=== PATIENT | female | born 1985 | race Caucasian/White ===

== ENCOUNTER 2020-07-24 15:57 | Inpatient (IN) ==
[2020-07-24] MEDS ORDERED: OXYTOCIN 30 UNITS/500 ML BAG IV PRN ×2 (18:15)
--- NOTE | 2020-07-24 18:38 | History & Physical Report ---
Date of Service July 24, 2020 Assessment & Plan Admission and Anticipated Discharge Date Admission Date: July 24, 2020 IUP at 37+ weeks with chronic hypertension on labetalol and superimposed hypertension. will AROM after PIH labs done may need pitocin augmentation anticipate vaginal History of Present Illness Primary Care Provider: Alexis Polk Patient is a 35 yo white female EDC 08/12/20 who presents at 37 2/7 weeks with history of chronic HTN on labetalol was seen in the office for BP check & NST , BP markedly elevated at visit and she is sent to L&D for further evaluation. No PIH or COVID symptoms. BP continues to meet gestational HTN criteria and so she will be admitted for IOL. GBS negative blood type- B positive. growth scans have been appropriate. prior history remarkable for a prior IUFD at 38 weeks ( cord accident). Allergies Allergy/AdvReac Type Severity Reaction Status Date / Time No Known Allergies Allergy Verified 07/24/20 16:43 Home Medications Home Medications Medication Instructions Recorded Confirmed Type labetalol 100 mg tablet 100 mg PO BID 12/28/19 07/24/20 History prenat.vits,eugene,[id number] 1 tab PO DAILY 12/28/19 07/24/20 History sertraline 100 mg tablet 100 mg PO DAILY 12/28/19 07/24/20 History aspirin 81 mg tablet,delayed 81 mg PO DAILY 03/01/20 07/24/20 History release Patient History Medical History Anxiety and depression History of chicken pox Hypertension Surgical History S/P dilatation and curettage Family History Father Hypertension Social History Smoking Status: Former smoker Hx Alcohol Use: No Hx Substance Use: No Preferred Language: Gambian Communication Ability: Effective Beliefs That Will Affect Care: None marital status: marital status details: Oliverio Sandoval (41) [phone] Current Living Situation: Family Current Living Situation Comment: 2 daughter and spouse current occupational status: employed 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[employer] Other Information That Helps Us Care for You: No Feels Safe at Home: Yes Safety Concerns: Feels Safe At This Time Review of Systems All systems reviewed & are unremarkable except as noted in HPI & below Physical Exam Constitutional: WD/WN, vitals as above Respiratory: normal respiratory effort, lungs clear to auscultation Cardiovascular: RRR, no murmur, no edema Gastrointestinal (Abdomen): normal bowel sounds, soft, nontender, no hepatosplenomegaly Psychiatric: A+Ox3, euthymic affect Genitourinary: OB Exam Abdomen: + vertex, + estimated weight (7-8 pounds) and + regular contractions (4 minutes- mild) Manual OB Exam: + cervical dilation 4 cm, + cervical effacement 70% and + station -2 OB Exam Monitor Tracing: + external FHT monitor used, + external uterine monitor used, + category I and + normal FHT variability Results & Data ([place]) Vital Signs (Past 12 Hours) Vital Signs Temp Pulse Resp BP 07/24/20 18:05 91 H 161/96 H 07/24/20 17:50 93 H 157/95 H 07/24/20 17:35 98 H 148/86 H 07/24/20 17:20 93 H 157/90 H 07/24/20 17:06 80 156/92 H 07/24/20 16:51 92 H 160/99 H 07/24/20 16:35 86 155/102 H 07/24/20 16:22 99.0 F 20 07/24/20 16:19 109 H 151/103 H 07/24/20 16:14 110 H 144/101 H Coding Level of Care Code None
[2020-07-24 18:44] LABS: Hematocrit (blood only) 33.4 % (37-47); Hemoglobin 11.6 g/dL (12.0-16.0); Mean Corpuscular Hemoglobin 31.4 pg (25-34); Mean Corpuscular Volume 90.5 fL (80-100); Mean Platelet Volume 10.3 fL (7.4-10.4); Platelet Count 232 K/uL (130-400); RDW Coefficient of Variation 13.9 % (11.5-14.5); RDW Standard Deviation 45.5 fL (36.4-46.3); Red Blood Count 3.69 M/uL (4.2-5.4); White Blood Count 6.15 K/uL (4.8-10.8)
[2020-07-24 18:46] LABS: Mean Corpuscular Hgb Conc 34.7 g/dL (32-36)
[2020-07-24 18:57] LABS: Partial Thromboplastin Ratio 0.9; Partial Thromboplastin Time 24.9 Seconds (21.0-31.0); Prothrombin Time 10.3 Seconds (9.0-12.0)
[2020-07-24 19:02] LABS: Creatinine Clr Calc Pharmacy 156.1 ml/min; Est GFR (African American) 137.6; Est GFR (Non-African American) 118.7
[2020-07-24] MEDS: LABETALOL HCL 100 MG TAB PO SCH (21:05)
[2020-07-24] MEDS: LACTATED RINGER'S 1,000 ML IV PRN (21:13)
[2020-07-24 21:31] LABS: Protein Creatinine Ratio Urine 0.9 (0-0.2); Total Protein Urine Random 96.6 mg/dl (0-11.9)
[2020-07-24] MEDS ORDERED: ePHEDrine sulfate 50 MG/ML AMP ONE (22:38)
[2020-07-24] MEDS ORDERED: fentaNYL citrate 100 MCG/2 ML VIAL ONE (22:38)
[2020-07-24] MEDS ORDERED: BUPIVACAINE 0.25% 30 ML VIAL ONE (22:38)
[2020-07-24] MEDS ORDERED: fentaNYL 2MCG/ML ROPIV 1.25MG/ML 100 ML BAG EPI ONE (22:39)
--- NOTE | 2020-07-24 23:14 | Anesthesiology Consultation ---
Date of Service July 24, 2020 Assessment & Plan ASA ASA3 Proposed Anesthesia Anesthesia Type: Labor Epidural Risk / Benefits Reviewed With: PT / POA / Parent / Guardian, Accepts Plan and Informed Consent Obtained History Height/Weight Height: 5 ft 5 in Weight: 100.244 kg Allergies Allergy/AdvReac Type Severity Reaction Status Date / Time No Known Allergies Allergy Verified 07/24/20 16:43 Medications Home Medications Medication Instructions Recorded Confirmed Last Taken labetalol 100 mg tablet 100 mg PO BID 12/28/19 07/24/20 07/24/20 07:00 prenat.vits,eugene,[id number]-yghom 1 tab PO DAILY 12/28/19 07/24/20 07/23/20 20:00 sertraline 100 mg tablet 100 mg PO DAILY 12/28/19 07/24/20 07/24/20 07:00 aspirin 81 mg tablet,delayed 81 mg PO DAILY 03/01/20 07/24/20 07/23/20 07:00 release Active Medications Generic Name Dose Route Start Last Admin Trade Name Armida PRN Reason Stop Dose Admin Lactated Ringer's 1,000 mls @ 125 mls/hr 07/24/20 18:15 07/24/20 22:59 Lr IV 07/26/20 18:14 125 mls/hr .Q8H PRN Infusion L&D Protocol Protocol Oxytocin 30 units in 500 mls @ 3 mls/hr 07/24/20 18:15 07/24/20 22:00 Pitocin IV 07/26/20 18:14 0.18 units/hr .Q24H PRN 3 mls/hr Labor Induction/Augmentation Titration Protocol 0.18 UNITS/HR Labetalol HCl 100 mg 07/24/20 21:00 07/24/20 21:05 Labetalol Hcl 100 Mg Tab PO 08/23/20 20:59 100 mg BID KEY Administration Past Medical History Medical History Anxiety and depression History of chicken pox Hypertension Exercise / Class Metabolic Activity II 4-5 Yardwork/Stairs/Walk up hill Past Family History Family History Father Hypertension Past Surgical History Surgical History (Reviewed 07/24/20 @ 23:35 by BALWINDER Live S/P dilatation and curettage Past Anesthesia History No Hx of Anesthesia Complications and No Family Hx of Anesthesia Complications History of PONV No Hx of PONV and No Hx of Motion Sickness Social History Smoking Status: Former smoker Hx Alcohol Use: No Hx Substance Use: No Review of Systems denies fever/cough/ colds/ chest pain/ SOB/ DAJUAN Constitutional: no fever and no chills Respiratory: no cough and no dyspnea denies DAJUAN Cardiovascular: no chest pain and no dyspnea on exertion Physical Exam Vital Signs Last Vital Signs Temp 36.9 C 07/24/20 22:45 Pulse 76 07/24/20 23:34 Resp 18 07/24/20 22:45 BP 128/81 07/24/20 23:34 Pulse Ox 93 07/24/20 23:30 ENMT Mouth: no TMJ abnormality and no dentition abnormality Thyromental Distance: > or= 3.5 Finger Breadths Mallampati Class: II Neck neck extension not limited Respiratory normal respiratory effort; no respiratory distress Auscultation: lungs clear to auscultation bilaterally Cardiovascular Rate/Rhythm: regular rate and regular rhythm Neurologic moves all extremities Psychiatric Orientation: alert and oriented x 3 Testing Laboratory Results 07/24/20 18:34 07/24/20 18:34 PT 10.3 Seconds (9.0-12.0) 07/24/20 18:34 INR 1.0 (0.9-1.1) 07/24/20 18:34 APTT 24.9 Seconds (21.0-31.0) 07/24/20 18:34
[2020-07-24] MEDS ORDERED: NALOXONE HCL 0.4 MG/1 ML VIAL/CARP IV PRN (23:36)
[2020-07-24] MEDS ORDERED: ePHEDrine sulfate 50 MG/ML AMP IV PRN (23:36)
[2020-07-24] MEDS ORDERED: ONDANSETRON INJ 2 MG/ML 2 ML VIAL IV PRN (23:36)
[2020-07-24] MEDS ORDERED: fentaNYL 2MCG/ML ROPIV 1.25MG/ML 100 ML BAG EPI PRN (23:36)
[2020-07-24] MEDS ORDERED: PROMETHAZINE HCL 25 MG in SODIUM CHLORIDE 0.9% 50 ML IV PRN (23:36)
[2020-07-24] MEDS ORDERED: DiphenhydrAMINE HCL 50 MG/ML VIAL IV PRN (23:36)
[2020-07-24] MEDS ORDERED: NALOXONE HCL 1 MG in SODIUM CHLORIDE 0.9% 1000ML 1,000 ML IV PRN (23:36)
[2020-07-25] MEDS: LACTATED RINGER'S 1,000 ML IV PRN (01:09)
[2020-07-25] MEDS ORDERED: HYDROCORTISONE ACETATE 25 MG SUPP PR PRN (03:09)
[2020-07-25] MEDS ORDERED: OXYTOCIN 30 UNITS/500 ML BAG IV PRN (03:09)
[2020-07-25] MEDS ORDERED: SUPERCREAM 0.870% 15 GM JAR EXT PRN (03:09)
[2020-07-25] MEDS ORDERED: DIPHTHERIA/TETANUS/PERTUSSIS 0.5 ML SYR/VIAL IM ONE (03:09)
[2020-07-25] MEDS ORDERED: BENZOCAINE 20% AER SPR 82.5 GM CAN EXT PRN (03:09)
[2020-07-25] MEDS ORDERED: bisacodyL 10 MG SUPP PR PRN (03:09)
[2020-07-25] MEDS ORDERED: OXYCODONE/ACETAMINOPHEN 5mg/325mg TAB PO PRN (03:09)
[2020-07-25] MEDS ORDERED: ACETAMINOPHEN 325 MG TAB PO PRN (03:09)
--- NOTE | 2020-07-25 06:15 | Delivery Summary ---
DATE OF OPERATION: 07/25/2020 The patient is a 35-year-old 5, para 3-0-1-2 white female who had presented for her normal postop visit at the office on 07/24/2020 when she was noted to have elevated blood pressures. She does have a history of chronic hypertension, but has been well controlled on labetalol. She was sent to labor and delivery for further evaluation. During her time in labor and delivery, she fit the criteria for gestational hypertension superimposed on chronic hypertension and she was admitted for induction of labor. She was 3-4 cm on initial exam and she was having mild contractions. Membranes were ruptured for clear fluid. She received effective epidural analgesia. There were moderate variables at one point during the labor and her Pitocin augmentation had been stopped at that time. Ultimately, she progressed to full dilation and pushed through 1 contraction for delivery of a viable male . There was a loose nuchal cord present which was reduced after delivery of the head. The rest of the delivered easily and placed on the mother's abdomen for further attention and drying. The infant was moving all 4 limbs and had spontaneous crying. The cord was clamped and cut after 1 minute. Placenta was expressed intact with a 3-vessel cord. The perineum was examined and was intact. Estimated blood loss was 250 mL. Mother and infant were doing well after delivery. I attest to the content of the Intraoperative Record and any orders documented therein. Any exception s are noted below.
--- NOTE | 2020-07-25 08:46 | Anesthesia Procedure Note ---
Date of Service July 25, 2020 Anesthesia Post Epidural Note Vital Signs Vital Signs: Temp Pulse Resp BP Pulse Ox 37.0 C 78 20 128/62 97 07/25/20 05:54 07/25/20 05:54 07/25/20 05:54 07/25/20 05:54 07/25/20 02:59 Notes Mental Status: alert / awake / arousable and participated in evaluation Nausea / Vomiting: adequately controlled Pain: adequately controlled Airway Patency, RR, SpO2: stable & adequate BP & HR: stable & adequate Hydration State: stable & adequate Neuraxial Anesthesia: was administered and sensory block is resolving Anesthetic Complications: no major complications apparent and Pt Satisfied with anesthetic care Epidural: Removed without complications and With tip intact
[2020-07-25] MEDS: LABETALOL HCL 100 MG TAB PO SCH ×2 (09:28→21:01)
[2020-07-25] MEDS: PRENATAL VITAMIN 1 TAB PO SCH (09:28)
[2020-07-25] MEDS: SERTRALINE HCL 100 MG TABLET PO SCH (09:28)
[2020-07-25] MEDS: IBUPROFEN 600 MG TAB PO PRN (09:29)
[2020-07-25] MEDS: DOCUSATE SODIUM 100 MG CAP PO SCH ×2 (09:29→21:01)
[2020-07-26 06:13] LABS: Hematocrit (blood only) 33.5 % (37-47); Hemoglobin 11.6 g/dL (12.0-16.0); Mean Corpuscular Hemoglobin 31.7 pg (25-34); Mean Corpuscular Hgb Conc 34.6 g/dL (32-36); Mean Corpuscular Volume 91.5 fL (80-100); Mean Platelet Volume 10.7 fL (7.4-10.4); Platelet Count 204 K/uL (130-400); RDW Coefficient of Variation 13.9 % (11.5-14.5); RDW Standard Deviation 45.8 fL (36.4-46.3); Red Blood Count 3.66 M/uL (4.2-5.4); White Blood Count 5.54 K/uL (4.8-10.8)
--- NOTE | 2020-07-26 07:05 | Obstetrical Progress Note ---
Date of Service July 26, 2020 Assessment & Plan (1) : Recovering normally after delivery. Wants to go home today. Has cHTN and is doing fine on her usual home dose of labetalol; aware of how to monitor pressures at home and symptoms to notify us about. Subjective Ambulation: ambulating normally Voiding: no voiding problems Passing Gas:: Yes Diet Tolerance:: regular diet Lochia:: Small Physical Exam Constitutional WD/WN, vitals as above Eyes PERRL, conjunctivae normal, anicteric sclerae Neck normal visual inspection Respiratory normal respiratory effort and able to speak in complete sentences; no respiratory distress and no labored breathing Cardiovascular Rate/Rhythm: regular rate and regular rhythm Extremities: no edema Chest (Breasts) Chest: normal inspection of chest Gastrointestinal (Abdomen) Inspection/Auscultation: abdomen normal to inspection Soft, postgravid Psychiatric A+Ox3, euthymic affect Genitourinary OB Exam Abdomen: + fundal height Fundus: + firm and + relation to umbilicus (fundus just below umbilicus); not tender Results & Data ([facility]) Vital Signs (Past 12 Hours) Vital Signs Temp Pulse Resp BP 07/25/20 23:20 98.1 F 71 20 136/86 07/25/20 21:00 74 133/83 07/25/20 19:20 98.4 F 65 18 143/89 H
[2020-07-26] MEDS: DOCUSATE SODIUM 100 MG CAP PO SCH (08:24)
[2020-07-26] MEDS: PRENATAL VITAMIN 1 TAB PO SCH (08:24)
[2020-07-26] MEDS: LABETALOL HCL 100 MG TAB PO SCH (08:25)
[2020-07-26] MEDS: SERTRALINE HCL 100 MG TABLET PO SCH (08:25)
[2020-07-26] MEDS: IBUPROFEN 600 MG TAB PO PRN (08:27)
[2020-07-26] MEDS ORDERED: bisacodyL 5 MG TABEC PO SCH (20:00)
== END 2020-07-26 12:37 | disposition home or self-care (01) | DRG 807 ==
LOC: OPB 15:57 → 4S1 15:58 → 4S2 07-25 06:03

== ENCOUNTER 2020-07-31 18:10 | Inpatient (IN) ==
--- NOTE | 2020-07-31 19:49 | Emergency Department Note ---
History of Present Illness General Chief complaint: Hypertension Stated complaint: HIGH BP, JUST HAD A BABY LAST WEEK Time Seen by Provider: 07/31/20 19:38 History of Present Illness Maximum Pain Intensity: 0 This is a 44-year-old female that presents to the emergency department via priva te vehicle with complaints of "high blood pressure, that started last week". The patient states that 07/25/2020 she gave to a healthy baby and has been doing well since that time. She states that she has a history of hypertension and is currently managed on labetalol 100 mg p.o. twice daily. She states that earlier today she started feeling some tightness in her chest and decided to check her blood pressure. She states that prior to arrival it was in the 170s and then increased when rechecked again and she became concerned and reached out to ESTATE PLANNING COUNSELOR and was recommended to come here for further evaluation and management. She states that she did have some chest pressure described as an object sitting on the chest. She also notes that since arriving here she is developed a minor headache. Overall discomfort currently a 4/10. She feels minimally short of breath but denies any true chest pain, rather feels as though it is more of a pressure. No fevers, chills, loss of taste or smell. She does note that the vaginal delivery was induced at 37 weeks gestation secondary to elevated blood pressure readings. Home Medications Home Medications Medication Instructions Recorded Confirmed Type labetalol 100 mg tablet 100 mg PO BID 12/28/19 07/31/20 History prenat.vits,eugene,rmh-vted-ibvps 1 tab PO DAILY 12/28/19 07/31/20 History sertraline 100 mg tablet 100 mg PO DAILY 12/28/19 07/31/20 History Allergies Allergy/AdvReac Type Severity Reaction Status Date / Time No Known Allergies Allergy Verified 07/31/20 23:06 Past Med/Surg History Medical History Anxiety and depression History of chicken pox Hypertension Surgical History S/P dilatation and curettage Family History Father Hypertension Social History Smoking Status: Former smoker Tobacco Type: Cigarettes Hx Alcohol Use: Yes Alcohol type: hard liquor Hx Substance Use: No Preferred Language: Irish Communication Ability: Effective Beliefs That Will Affect Care: None marital status: marital status details: Oliverio Sandoval (41) [phone] Current Living Situation: Spouse Current Living Situation Comment: lives with and children current occupational status: employed 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[employer] [facility] Feels Safe at Home: Yes Assistive Devices: Glasses Review of Systems A total of 10 systems reviewed and were otherwise negative Physical Exam Vital Signs Vital Signs - 24 hr 07/31/20 18:29 07/31/20 19:58 07/31/20 20:30 Temperature 37.3 C Temperature Source Oral Pulse Rate 70 62 61 Pulse Rate from SpO2 Sensor 62 Pulse Rhythm Regular Respiratory Rate 20 20 18 Respiratory Effort / Characteristics Non-Labored Respiratory Depth Normal Blood Pressure 182/104 H 157/105 H Blood Pressure Mean 130 122 Pulse Oximetry 96 96 96 Oxygen Delivery Method Room Air Room Air Sepsis Recent Fever Within 48 Hours No Sepsis New/Unexplained Change in Mental Status N/A Sepsis Action Taken by Nursing No Action Required 07/31/20 21:00 07/31/20 21:43 07/31/20 21:45 Temperature Temperature Source Pulse Rate 77 61 62 Pulse Rate from SpO2 Sensor 75 63 Pulse Rhythm Respiratory Rate 20 23 16 Respiratory Effort / Characteristics Respiratory Depth Blood Pressure 180/107 H 183/109 H 183/109 H Blood Pressure Mean 131 129 133 Pulse Oximetry 98 97 96 Oxygen Delivery Method Room Air Sepsis Recent Fever Within 48 Hours Sepsis New/Unexplained Change in Mental Status Sepsis Action Taken by Nursing 07/31/20 22:00 07/31/20 22:30 Temperature Temperature Source Pulse Rate 73 67 Pulse Rate from SpO2 Sensor 73 67 Pulse Rhythm Respiratory Rate 18 19 Respiratory Effort / Characteristics Respiratory Depth Blood Pressure 173/111 H 142/95 H Blood Pressure Mean 115 115 Pulse Oximetry 97 97 Oxygen Delivery Method Sepsis Recent Fever Within 48 Hours Sepsis New/Unexplained Change in Mental Status Sepsis Action Taken by Nursing VITAL SIGNS - Vital signs and nursing notes were reviewed. Hypertensive, otherwise stable. GENERAL -35-year-old female appearing her stated age who is in no acute distress. Communicates well with provider and answers questions appropriately. SKIN - Without rashes. No meningeal or petechial rash. HEAD - NC/AT. EYES - PERRL with EOMI bilaterally. Sclera anicteric. EARS - No deformities of external structures noted on gross examination bilat erally. NOSE - Midline and without cyanosis. No epistaxis or purulent drainage noted. MOUTH/OROPHARYNX - Without perioral cyanosis. NECK - Neck with FROM. No nuchal rigidity. LUNGS - Chest wall symmetric without accessory muscle use, intercostals retractions, or central cyanosis. Normal vesicular breath sounds CTA B/L. No wheezes, rales, or rhonchi appreciated. CARDIAC - RRR with S1/S2. No murmur, rubs, or gallops appreciated. ABDOMEN - Abdominal contour normal without pulsations or visible masses. BS normoactive all four quadrants. No tenderness, palpable masses, hepatosplenomegaly, or ascites noted. EXTREMITIES - No clubbing or peripheral cyanosis. No pretibial edema present. +5/5 strength noted in UE/LE bilaterally. NEUROLOGIC - Cranial nerves II through XII grossly intact. PSYCH - A&O, and cooperates fully with examiner. Pt is very pleasant and interacts well with examiner. Course Administered Medications Magnesium Sulfate (Magnesium Sulfate / Wtr) 40 gm in 1,000 mls @ 50 mls/hr IV .Q20H KEY Stop: 08/31/20 02:10 Last Admin: 08/01/20 02:52 Dose: 50 mls/hr Documented by: [id number] Cosigned by: [id number] Discontinued Medications Magnesium Sulfate (Mag Sulfate Bolus From Bag) 0 mls @ 0 mls/hr IV .Q0M ONE Stop: 07/31/20 21:00 Last Infusion: 07/31/20 22:32 Dose: 0 mls/hr Documented by: [id number] Cosigned by: [id number] Admin: 07/31/20 21:48 Dose: 100 mls/hr Documented by: [id number] Cosigned by: [id number] Magnesium Sulfate (Magnesium Sulfate / Wtr) 40 gm in 1,000 mls @ 50 mls/hr IV .Q20H KEY Stop: 08/30/20 20:59 Last Infusion: 08/01/20 02:55 Dose: 0 mls/hr Documented by: [id number] Cosigned by: [id number] Admin: 07/31/20 21:48 Dose: 50 mls/hr Documented by: [id number] Cosigned by: [id number] Ioversol (Optiray 320 125ml) 120 ml IV ONCE ONE Stop: 07/31/20 21:33 Last Admin: 07/31/20 21:33 Dose: 120 ml Documented by: [id number] Labetalol HCl (Labetalol Hcl 100 Mg Tab) 100 mg PO NOW ONE Stop: 07/31/20 20:49 Last Admin: 07/31/20 21:00 Dose: 100 mg Documented by: [id number] Labetalol HCl (Labetalol Hcl Iv 5 Mg/Ml 20ml) 20 mg IV ONCE STA Stop: 08/01/20 02:12 Last Admin: 08/01/20 02:52 Dose: Not Given Documented by: [id number] Critical Care Time Critical Care Time: Yes Total Critical Care Time: 40 I have personally spent greater than 40 minutes of critical care time in the direct management of this patient. This includes bedside care, interpretation of diagnostic studies, and testing, discussion with consultants, patient, and other required patient management activities. Medical Decision Making Laboratory Data Result diagrams: 07/31/20 20:00 07/31/20 20:00 Lab Results 07/31/20 07/31/20 07/31/20 Range/Units 20:00 20:00 20:00 WBC 6.34 (4.8-10.8) K/uL RBC 4.07 L (4.2-5.4) M/uL Hgb 13.3 (12.0-16.0) g/dL Hct 37.3 (37-47) % MCV 91.6 (80-100) fL MCH 32.7 (25-34) pg MCHC 35.7 (32-36) g/dL RDW Std Deviation 44.3 (36.4-46.3) fL RDW Coeff of Tawanda 13.1 (11.5-14.5) % Plt Count 343 (130-400) K/uL MPV 10.1 (7.4-10.4) fL Immature Gran % (Auto) 0.2 % Neut % (Auto) 71.4 % Lymph % (Auto) 16.9 % [place] % (Auto) 6.5 % Eos % (Auto) 4.4 % Baso % (Auto) 0.6 % Neut # (Auto) 4.53 (1.4-6.5) K/uL Lymph # (Auto) 1.07 L (1.2-3.4) K/uL [place] # (Auto) 0.41 (0.11-0.59) K/uL Eos # (Auto) 0.28 (0-0.5) K/uL Baso # (Auto) 0.04 (0-0.2) K/uL Immature Gran # (Auto) 0.01 (0.00-0.02) K/uL PT (9.0-12.0) Seconds INR (0.9-1.1) APTT (21.0-31.0) Seconds PTT Ratio Sodium 141 (136-145) mmol/L Potassium 3.7 (3.5-5.1) mmol/L Chloride 109 H (98-107) mmol/L Carbon Dioxide 24 (21-32) mmol/L Anion Gap 8.0 (3-11) BUN 12 (7-18) mg/dl Creatinine 0.79 (0.6-1.2) mg/dl Est Cr Clr Drug Dosing 112.8 ml/min Est GFR ( Amer) 112.4 Est GFR (Non-Af Amer) 97.0 BUN/Creatinine Ratio 15.4 (10-20) Glucose 84 (70-99) mg/dl Calcium 9.2 (8.5-10.1) mg/dl Magnesium 2.3 (1.8-2.4) mg/dl Total Bilirubin 0.3 (0.2-1) mg/dl AST 54 H (15-37) U/L ALT 77 (12-78) U/L Alkaline Phosphatase 120 H (45-117) U/L Troponin I 0.190 H* (0-0.045) ng/ml Total Protein 7.4 (6.4-8.2) gm/dl Albumin 3.3 L (3.4-5.0) gm/dl Globulin 4.1 H (2.5-4.0) gm/dl Albumin/Globulin Ratio 0.8 L (0.9-2) TSH 2.310 (0.300-4.500) uIu/ml Urine Color Yellow Urine Appearance Clear (Clear) Urine pH 7.0 (4.5-7.5) Ur Specific [place] 1.004 (1.000-1.030) Urine Protein Negative (Negative) Urine Glucose (UA) Negative (Negative) Urine Ketones Negative (Negative) Urine Blood 2+ H (Negative) Urine Nitrite Negative (Negative) Urine Bilirubin Negative (Negative) Urine Urobilinogen Negative (Negative) Ur Leukocyte Esterase 2+ H (Negative) Urine WBC (Auto) 5-10 H (0-5) /hpf Urine RBC (Auto) 0-4 (0-4) /hpf U Hyaline Cast (Auto) 0 (0-5) /lpf U Epithel Cells (Auto) 20-30 H (0-5) /lpf Urine Bacteria (Auto) Negative (Negative) 07/31/20 07/31/20 Range/Units 20:00 21:59 WBC (4.8-10.8) K/uL RBC (4.2-5.4) M/uL Hgb (12.0-16.0) g/dL Hct (37-47) % MCV (80-100) fL MCH (25-34) pg MCHC (32-36) g/dL RDW Std Deviation (36.4-46.3) fL RDW Coeff of Tawanda (11.5-14.5) % Plt Count (130-400) K/uL MPV (7.4-10.4) fL Immature Gran % (Auto) % Neut % (Auto) % Lymph % (Auto) % [place] % (Auto) % Eos % (Auto) % Baso % (Auto) % Neut # (Auto) (1.4-6.5) K/uL Lymph # (Auto) (1.2-3.4) K/uL [place] # (Auto) (0.11-0.59) K/uL Eos # (Auto) (0-0.5) K/uL Baso # (Auto) (0-0.2) K/uL Immature Gran # (Auto) (0.00-0.02) K/uL PT 10.6 (9.0-12.0) Seconds INR 1.0 (0.9-1.1) APTT 27.1 (21.0-31.0) Seconds PTT Ratio 1.0 Sodium (136-145) mmol/L Potassium (3.5-5.1) mmol/L Chloride (98-107) mmol/L Carbon Dioxide (21-32) mmol/L Anion Gap (3-11) BUN (7-18) mg/dl Creatinine (0.6-1.2) mg/dl Est Cr Clr Drug Dosing ml/min Est GFR ( Amer) Est GFR (Non-Af Amer) BUN/Creatinine Ratio (10-20) Glucose (70-99) mg/dl Calcium (8.5-10.1) mg/dl Magnesium (1.8-2.4) mg/dl Total Bilirubin (0.2-1) mg/dl AST (15-37) U/L ALT (12-78) U/L Alkaline Phosphatase (45-117) U/L Troponin I 0.620 H* (0-0.045) ng/ml Total Protein (6.4-8.2) gm/dl Albumin (3.4-5.0) gm/dl Globulin (2.5-4.0) gm/dl Albumin/Globulin Ratio (0.9-2) TSH (0.300-4.500) uIu/ml Urine Color Urine Appearance (Clear) Urine pH (4.5-7.5) Ur Specific [place] (1.000-1.030) Urine Protein (Negative) Urine Glucose (UA) (Negative) Urine Ketones (Negative) Urine Blood (Negative) Urine Nitrite (Negative) Urine Bilirubin (Negative) Urine Urobilinogen (Negative) Ur Leukocyte Esterase (Negative) Urine WBC (Auto) (0-5) /hpf Urine RBC (Auto) (0-4) /hpf U Hyaline Cast (Auto) (0-5) /lpf U Epithel Cells (Auto) (0-5) /lpf Urine Bacteria (Auto) (Negative) Imaging Data Radiologist's Impression: XR chest 1V portable CLINICAL HISTORY: Chest pain, hypertension, recent vaginal delivery. COMPARISON STUDY: No previous studies for comparison. FINDINGS: The cardiac and mediastinal contours are normal. There is no evidence of focal pulmonary consolidation. There is no evidence of failure. No pleural effusions are visualized.[ IMPRESSION: No active disease in the chest. ACT 112: Negative or not required by law. Electronically signed by: Venkat Rodarte M.D. 07/31/2020 8:[address] HEAD: The paranasal sinuses and mastoid air cells are normally aerated. There is no skull fracture or scalp hematoma. There is a normal gyral pattern of the brain. There is no mass lesion or midline shift. The randhawa-white matter differentiation is maintained. The ventricles and CSF spaces are normal. There is no evidence of acute large vessel infarct or intracranial hemorrhage. Radiologist: Jaren Miller MD Study ready at 21:37 and initial results transmitted at 22:01 CTA CHEST: The pulmonary arterial tree is well opacified with contrast. No pulmonary emboli are identified. The aorta is nondilated. There is no aneurysm or dissection. No mediastinal or axillary lymphadenopathy or masses seen. The heart is not enlarged. No pericardial effusion. The lungs are well inflated and clear. No infiltrate or consolidation is seen. No pneumothorax or pleural effusion. Skeletal structures are within normal limits for age. Radiologist: Jaren Miller MD Study ready at 21:42 and initial results transmitted at 22:06 [facility] Narrative Patient was seen and evaluated as above in room B05. Review was performed of nursing notes and vital signs. I did review pertinent previous visits and patient history. After obtaining a thorough history and physical examination the above work up was performed. She presents to us today with chest pressure, now a headache that is developed on arrival in the setting of elevated blood pressure. She is nontoxic on examination. Other than the blood pressure, her vital signs are appropriate. Chest x-ray was obtained and is normal. EKG was obtained on arrival and reveals normal sinus rhythm at a rate of 66 bpm. No ectopy or ischemic change. QTc on the initial EKG was 417. A 2-hour EKG repeat was obtained and revealed normal sinus rhythm at a rate of 70 bpm. No ectopy or ischemic change. QTc 453. No ST elevation. A 30 EKG was obtained throughout the stay and did reveal normal sinus rhythm at a rate of [address] bpm[address] QTc [address] elevation. Her evening dose of labetalol was ordered as it was due. Labs reveal no leukocytosis or anemia. Coags are normal. Platelet count is appropriate. Mild elevation of AST. Initial troponin 0.19. I did discuss the patient presentation with the on-call ESTATE PLANNING COUNSELOR doctor, Dr. Lopez. It was recommended to provide the patient magnesium 4 g IV over 30 minutes followed by an infusion of 2 g/h after that. This was ordered but I did have to call the pharmacist to finalize the order. Patient was checked throughout this and was doing quite well. No adverse reaction. Urinalysis reveals no protein. CTA of the chest as well as CT head was obtained and were negative. CTA pain of the chest secondary troponin elevation in the setting of chest pressure and recent vaginal delivery as well as CT head obtained given the headache and hypertens ion. These were negative per radiology with reports as above. Decision at that point was to admit the patient to the L&D floor and then the repeat troponin came back at 0.62. I then discussed this with Dr. Lopez and decision was then made to consult medicine as well as cardiology. I spoke with Dr. Miller of the medicine team who will evaluate the patient. I also discussed the case with Dr. Esqueda of cardiology. Recommendation was for blood pressure control at this time and then cardiology will consult on the patient in the morning. I believe this is very reasonable. At this point the patient is feeling much improved. A third troponin was added and was found to be 0.741. While in the department, I personally reevaluated the patient several times and each time the patient was found to be resting comfortably. The patient was educated upon management, educated upon todays findings/results, and was amenable to staying. Please refer to further documentation regarding her stay. Case was discussed with the attending physician. GCS: 15 In the evaluation and treatment of this patient the following differential diagnoses were entertained: Hypertensive urgency, preeclampsia, myocarditis, cardiomyopathy, coronary artery dissection, PE, among others. Impression & Plan Hypertension, Elevated troponin, Severe pre-eclampsia, complicating the puerperium Discharge Plan Visit Data Chief Complaint: Hypertension Stated Complaint: HIGH BP, JUST HAD A BABY LAST WEEK ED Provider: Travon Eugene ED Midlevel Provider: Constantine Merino Discharge Problem: Hypertension, Elevated troponin, Severe pre-eclampsia, complicating the puerperium Patient Disposition: Admitted As Inpatient Condition: Good Discharge Instructions Interventions: ED Discharge Assessment Last Done: 08/01/20 01:42
[2020-07-31 20:10] LABS: Basophils # (auto) 0.04 K/uL (0-0.2); Basophils % (auto) 0.6 %; Eosinophils # (auto) 0.28 K/uL (0-0.5); Eosinophils % (auto) 4.4 %; Hematocrit (blood only) 37.3 % (37-47); Hemoglobin 13.3 g/dL (12.0-16.0); Immature Granulocytes # (auto) 0.01 K/uL (0.00-0.02); Immature Granulocytes % (auto) 0.2 %; Lymphocytes # (auto) 1.07 K/uL (1.2-3.4); Lymphocytes % (auto) 16.9 %; Mean Corpuscular Hemoglobin 32.7 pg (25-34); Mean Corpuscular Hgb Conc 35.7 g/dL (32-36); Mean Corpuscular Volume 91.6 fL (80-100); Mean Platelet Volume 10.1 fL (7.4-10.4); Monocytes # (auto) 0.41 K/uL (0.11-0.59); Monocytes % (auto) 6.5 %; Neutrophils # (auto) 4.53 K/uL (1.4-6.5); Neutrophils % (auto) 71.4 %; Platelet Count 343 K/uL (130-400); RDW Coefficient of Variation 13.1 % (11.5-14.5); RDW Standard Deviation 44.3 fL (36.4-46.3); Red Blood Count 4.07 M/uL (4.2-5.4); White Blood Count 6.34 K/uL (4.8-10.8)
--- NOTE | 2020-07-31 20:10 | XRay Report ---
XR chest 1V portable CLINICAL HISTORY: Chest pain, hypertension, recent vaginal delivery. COMPARISON STUDY: No previous studies for comparison. FINDINGS: The cardiac and mediastinal contours are normal. There is no evidence of focal pulmonary co nsolidation. There is no evidence of failure. No pleural effusions are visualized.[ IMPRESSION: No active disease in the chest. ACT 112: Negative or not required by law. Electronically signed by: Venkat Rodarte M.D. 07/31/2020 8:08 PM
[2020-07-31 20:17] LABS: Appearance Urine Clear (Clear); Bacteria Urine Automated Negative (Negative); Bilirubin Urine Negative (Negative); Blood Urine 2+ (Negative); Cast Urine Automated 0 /lpf (0-5); Color Urine Yellow; Epithelial Cell Urine Auto 20-30 /lpf (0-5); Glucose Urine UA Negative (Negative); Ketones Urine Negative (Negative); Leukocyte Esterase Urine 2+ (Negative); Nitrite Urine Negative (Negative); Protein Urine Negative (Negative); RBC Urine Automated 0-4 /hpf (0-4); Specific Gravity Urine 1.004 (1.000-1.030); Urobilinogen Urine Negative (Negative)
[2020-07-31 20:28] LABS: Albumin Level 3.3 gm/dl (3.4-5.0); BUN Creatinine Ratio 15.4 (10-20); Calcium 9.2 mg/dl (8.5-10.1); Creatinine Clr Calc Pharmacy 112.8 ml/min; Est GFR (African American) 112.4; Magnesium 2.3 mg/dl (1.8-2.4); Potassium 3.7 mmol/L (3.5-5.1)
[2020-07-31 20:43] LABS: Albumin Globulin Ratio 0.8 (0.9-2); Bilirubin,Total 0.3 mg/dl (0.2-1); Globulin 4.1 gm/dl (2.5-4.0); Thyroid Stimulating Hormone 2.31 uIu/ml (0.300-4.500); Total Protein 7.4 gm/dl (6.4-8.2); Troponin I 0.19 ng/ml (0-0.045)
[2020-07-31] MEDS ORDERED: LABETALOL HCL 100 MG TAB PO ONE (20:48)
[2020-07-31] MEDS ORDERED: MAG SULFATE BOLUS FROM BAG 4 GM IV ONE (20:59)
[2020-07-31] MEDS ORDERED: MAGNESIUM SULFATE / WTR 40 GM/1,000 ML BAG IV SCH (21:00)
[2020-07-31 21:28] LABS: Partial Thromboplastin Time 27.1 Seconds (21.0-31.0); Prothrombin Time 10.6 Seconds (9.0-12.0)
[2020-07-31] MEDS ORDERED: OPTIRAY 320 125ml IV ONE (21:32)
--- NOTE | 2020-07-31 21:57 | History & Physical Report ---
Date of Service July 31, 2020 Assessment & Plan (1) Severe pre-eclampsia, complicating the puerperium: Patient was presented to me by phone per Constantine Merino PA-C by phone. With her complaints of STILL and chest pressure, BP in severe range, creatinine 0.79, AST/ALT mildly elevated, the working diagnosis is severe preeclampsia, superimposed on her baseline cHTN. Platelets do look normal, and proteinuria was not detected, which would make this an atypical preeclampsia but would not exclude the diagnosis. The ER also obtained troponin which was mildly elevated. It is unclear to me whether this represents a true acute event or is more related to recent /delivery, but will await the completion of ER workup based on this. They are planning CT chest and head. While this workup proceeds, I recommended to Constantine over the phone that they begin IV magnesium 4g bolus over 30min and follow that with 2g/hr maintenance, and initiate seizure precautions. They have done so. Assuming no other concerns beyond severe preeclampsia, I would anticipate admitting this patient to [facility] for 24 hours of magnesium therapy and IV antihypertensive as needed. If there are concerns that suggest the patient would be better located on a higher-acuity unit, I will be happy to provide support to the primary admitting team there. ER Dr. Eugene aware and will let me know the outcome of the remainder of the workup and the anticipated route of patient admission. History of Present Illness Primary Care Provider: Alexis Polk 35yo , PPD#7 from [facility], with a complicated by cHTN on labetalol. Presents to ER tonight with c/o BP at home 170/110, headache, and chest pressure. She denied visual changes or abdominal pain when questioned by ER staff; not available for me to speak with at this time due to imaging in progress. Allergies Allergy/AdvReac Type Severity Reaction Status Date / Time No Known Allergies Allergy Verified 07/24/20 16:43 Home Medications Home Medications Medication Instructions Recorded Confirmed Type labetalol 100 mg tablet 100 mg PO BID 12/28/19 07/24/20 History prenat.vits,eugene,xaz-sotm-npktb 1 tab PO DAILY 12/28/19 07/24/20 History sertraline 100 mg tablet 100 mg PO DAILY 12/28/19 07/24/20 History aspirin 81 mg tablet,delayed 81 mg PO DAILY 03/01/20 07/24/20 History release Patient History Medical History Anxiety and depression History of chicken pox Hypertension Surgical History S/P dilatation and curettage Family History Father Hypertension Social History Smoking Status: Former smoker Tobacco Type: Cigarettes Hx Alcohol Use: No Hx Substance Use: No Preferred Language: Latvian Communication Ability: Effective Beliefs That Will Affect Care: None marital status: marital status details: Oliverio Sandoval (41) [phone] Current Living Situation: Family Current Living Situation Comment: 2 daughter and spouse current occupational status: employed 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 Results & Data ([facility]) Vital Signs (Past 12 Hours) Vital Signs Temp Pulse Resp BP Pulse Ox 07/31/20 20:30 61 18 157/105 H 96 07/31/20 19:58 62 20 96 07/31/20 18:29 99.1 F 70 20 182/104 H 96 Laboratory Results Laboratory Results - last 24 hr 07/31/20 07/31/20 07/31/20 20:00 20:00 20:00 WBC 6.34 RBC 4.07 L Hgb 13.3 Hct 37.3 MCV 91.6 MCH 32.7 MCHC 35.7 RDW Std Deviation 44.3 RDW Coeff of Tawanda 13.1 Plt Count 343 MPV 10.1 Immature Gran % (Auto) 0.2 Neut % (Auto) 71.4 Lymph % (Auto) 16.9 [place] % (Auto) 6.5 Eos % (Auto) 4.4 Baso % (Auto) 0.6 Neut # (Auto) 4.53 Lymph # (Auto) 1.07 L [place] # (Auto) 0.41 Eos # (Auto) 0.28 Baso # (Auto) 0.04 Immature Gran # (Auto) 0.01 PT INR APTT PTT Ratio Sodium 141 Potassium 3.7 Chloride 109 H Carbon Dioxide 24 Anion Gap 8.0 BUN 12 Creatinine 0.79 Est Cr Clr Drug Dosing 112.8 Est GFR ( Amer) 112.4 Est GFR (Non-Af Amer) 97.0 BUN/Creatinine Ratio 15.4 Glucose 84 Calcium 9.2 Magnesium 2.3 Total Bilirubin 0.3 AST 54 H ALT 77 Alkaline Phosphatase 120 H Troponin I 0.190 H* Total Protein 7.4 Albumin 3.3 L Globulin 4.1 H Albumin/Globulin Ratio 0.8 L TSH 2.310 Urine Color Yellow Urine Appearance Clear Urine pH 7.0 Ur Specific [place] 1.004 Urine Protein Negative Urine Glucose (UA) Negative Urine Ketones Negative Urine Blood 2+ H Urine Nitrite Negative Urine Bilirubin Negative Urine Urobilinogen Negative Ur Leukocyte Esterase 2+ H Urine WBC (Auto) 5-10 H Urine RBC (Auto) 0-4 U Hyaline Cast (Auto) 0 U Epithel Cells (Auto) 20-30 H Urine Bacteria (Auto) Negative 07/31/20 20:00 WBC RBC Hgb Hct MCV MCH MCHC RDW Std Deviation RDW Coeff of Tawanda Plt Count MPV Immature Gran % (Auto) Neut % (Auto) Lymph % (Auto) [place] % (Auto) Eos % (Auto) Baso % (Auto) Neut # (Auto) Lymph # (Auto) [place] # (Auto) Eos # (Auto) Baso # (Auto) Immature Gran # (Auto) PT 10.6 INR 1.0 APTT 27.1 PTT Ratio 1.0 Sodium Potassium Chloride Carbon Dioxide Anion Gap BUN Creatinine Est Cr Clr Drug Dosing Est GFR ( Amer) Est GFR (Non-Af Amer) BUN/Creatinine Ratio Glucose Calcium Magnesium Total Bilirubin AST ALT Alkaline Phosphatase Troponin I Total Protein Albumin Globulin Albumin/Globulin Ratio TSH Urine Color Urine Appearance Urine pH Ur Specific [place] Urine Protein Urine Glucose (UA) Urine Ketones Urine Blood Urine Nitrite Urine Bilirubin Urine Urobilinogen Ur Leukocyte Esterase Urine WBC (Auto) Urine RBC (Auto) U Hyaline Cast (Auto) U Epithel Cells (Auto) Urine Bacteria (Auto) Coding Level of Care Code None Diagnoses Severe pre-eclampsia, complicating the puerperium O14.15
--- NOTE | 2020-07-31 23:18 | Emergency Department Note ---
ED Visit Note The patient was seen and examined with bamat. I agree with the history, physical and findings. Please see the note for disposition and details. .
--- NOTE | 2020-07-31 23:36 | Emergency Department Note ---
Pre Sedation Assessment Vital Signs Temp Pulse Resp BP Pulse Ox 07/31/20 23:00 70 17 149/89 H 96 07/31/20 22:30 67 19 142/95 H 97 07/31/20 22:00 73 18 173/111 H 97 07/31/20 21:45 62 16 183/109 H 96 07/31/20 21:43 61 23 183/109 H 97 07/31/20 21:00 77 20 180/107 H 98 07/31/20 20:30 61 18 157/105 H 96 07/31/20 19:58 62 20 96 07/31/20 18:29 37.3 C 70 20 182/104 H 96 Pre-Sedation Airway Assessment Smoking Status: Former smoker Notes The planned sedation has been discussed with the patient. Informed Consent was obtained. I have identified the patient, determined the appropriateness of sedation and have assessed the patient immediately prior to the procedure. All medicine(s) and interventions are by my order.
--- NOTE | 2020-07-31 23:38 | Emergency Department Note ---
Post Sedation Assessment Vital Signs Temp Pulse Resp BP Pulse Ox 07/31/20 23:00 70 17 149/89 H 96 07/31/20 22:30 67 19 142/95 H 97 07/31/20 22:00 73 18 173/111 H 97 07/31/20 21:45 62 16 183/109 H 96 07/31/20 21:43 61 23 183/109 H 97 07/31/20 21:00 77 20 180/107 H 98 07/31/20 20:30 61 18 157/105 H 96 07/31/20 19:58 62 20 96 07/31/20 18:29 37.3 C 70 20 182/104 H 96 Recovery Score Activity: Moves 4 extremities Consciousness: Fully Awake Post Sedation Plan On clinical assessment, the patient appears to have tolerated the sedation without complications. Patient is recovering as anticipated. Patient will continue to be monitored by nursing and may be discharged when sedation discharge criteria are met per below protocol. Upon Completions of procedure up to 15 minutes continue every 5 minute vital signs and the P.A.R. score; then discharge to a Phase I or Fast Track to Phase II per the following guidelines: * Discharge Patient to appropriate Phase II area if PAR is 8 or greater or return to pre- procedure baseline. The post - procedure orders will be as directed. * If PAR score is less than 8 or not return to pre-procedure baseline then patient will follow Phase I monitoring till PAR is reached for Phase II. The Phase I may be done in procedure room or may call to secure a Phase I area. * If naloxone or flumazenil are used for reversal, hold in Phase I for continued monitoring from when last reversal dose was given for a minimum of 60 minutes or longer pending the nurse and/or physician discretion of patient condition before discharge to Phase II. Please call the Sedation Physician to re-evaluate and complete post-note for discharge to Phase II area. Do NOT discharge from procedure sedation or Phase 1 until post- sedation evaluation note is complete by procedure /sedation MD Sedation Discharge Instructions to be given to the patient at discharge to home.
--- NOTE | 2020-08-01 01:05 | Consultation ---
Date of Consultation August 01, 2020 Assessment & Plan (1) Elevated troponin: 35yo C female with history of chronic HTN, post- day #7 from presenting with chest discomfort, STILL thought to be secondary to severe pre- eclampsia. Patient with elevated troponin, no acute EKG changes. Ddx to include coronary artery dissection, post- cardiomyopathy, strain from elevated BP. Less likely CAD, myocarditis. Patient's symptoms have improved with BP control -Admit to PCU -Management of severe pre-eclampsia as below -Continue Labetalol -Trend troponin -Check 2D echocardiogram -Cardiology consultation appreciated Present on Admission?: Yes (2) Severe pre-eclampsia, complicating the puerperium: BP control has improved. No edema, visual changes, proteinuria -Admit to PCU -Magnesium gtt -Labetalol as needed -Seizure precautions Present on Admission?: Yes (3) Depression: Chronic -Patient to continue Sertraline F/E/N - LR, monitor electrolytes, SCDs Ppx - SCDs Code - Full Dispo - Admit to PCU/Tele History of Present Illness Reason for Consultation: elevated troponin Attending Physician: Dr. Shandra Lopez History of Present Illness Enma Sandoval is a pleasant 35yo female with history of chronic hypertension, post- day #7 from presenting with chest discomfort and elevated blood pressure. Patient states that this evening she developed headache, substernal chest pressure/heaviness and shortness of breath. She check her BP with her home cuff and found it to be 170/110. She called OB and was instructed to come to the ER. She denies visual changes, edema, foamy urine, numbness/tingling/weakness or seizure. She denies palpitations. Had some mild dizziness. On arrival to the ER she was found to be hypertensive at 182/104 otherwise stable. She had mildly elevated troponin at 0.190 with no ischemic EKG changes. Patient was administered Magnesium sulfate and PO Labetalol. Repeat troponin 2 hours after first draw increased to 0.602. Patient feels much improved. She still has some very mild substernal chest heaviness. No additional complaints at this time. Patient developed some dizziness following childbirth 2 years ago. She had a battery of tests to include echocardiogram, thyroid testing, MRI, Holter monitor, stress testing and EKG which were unrevealing. She was ultimately diagnosed with anxiety and started on sertraline with improvement in her dizziness symptoms. She has history of chronic hypertension otherwise no cardiac history. No history of post- cardiomyopathy or complications. ER Course: Labetalol 100mg PO, Magnesium sulfate gtt Allergies Allergy/AdvReac Type Severity Reaction Status Date / Time No Known Allergies Allergy Verified 07/31/20 23:06 Home Medications Home Medications Medication Instructions Recorded Confirmed Type labetalol 100 mg tablet 100 mg PO BID 12/28/19 07/31/20 History prenat.vits,eugene,aro-lkyc-zjwww 1 tab PO DAILY 12/28/19 07/31/20 History sertraline 100 mg tablet 100 mg PO DAILY 12/28/19 07/31/20 History Patient History Medical History Anxiety and depression History of chicken pox Hypertension Surgical History S/P dilatation and curettage Family History Father Hypertension Social History Smoking Status: Former smoker Tobacco Type: Cigarettes Hx Alcohol Use: No Hx Substance Use: No Preferred Language: Taiwanese Communication Ability: Effective Beliefs That Will Affect Care: None marital status: marital status details: Oliverio Sandoval (41) [phone] Current Living Situation: Family Current Living Situation Comment: 2 daughter and spouse current occupational status: employed 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[employer] Feels Safe at Home: Yes Assistive Devices: None Review of Systems Review of Systems: All systems reviewed & are unremarkable except as noted in HPI & below Physical Exam Physical Exam: General: patient resting comfortably, NAD, non-toxic in appearance, AA&O x 4, tearful Skin: warm, dry, intact, no rashes or lesions HEENT: NC/AT, PERRL, EOMI, anicteric sclera, conjunctiva without injection, external ear normal to inspection and nontender, nares patent, moist mucus membranes, dentition intact, no oropharyngeal lesions, neck supple, trachea midline, no LAD, no thyromegaly, no JVD Heart: +S1/S2, regular, no m/r/g Lungs: equal air entry bilaterally, no rales/rhonchi/wheezes Abd: +BS, soft, NT/ND, no masses/organomegaly/ascites Ext: warm, 2+ pulses in UE/LE bilaterally, no clubbing/cyanosis or edema Neuro: nonfocal, patient AA&O x 4, speech intact, no facial droop, moving all extremities on command with equal strength 5/5 Results & Data ([facility]) Vital Signs (Past 12 Hours) Vital Signs Temp Pulse Resp BP Pulse Ox 07/31/20 23:00 70 17 149/89 H 96 07/31/20 22:30 67 19 142/95 H 97 07/31/20 22:00 73 18 173/111 H 97 07/31/20 21:45 62 16 183/109 H 96 07/31/20 21:43 61 23 183/109 H 97 07/31/20 21:00 77 20 180/107 H 98 07/31/20 20:30 61 18 157/105 H 96 07/31/20 19:58 62 20 96 07/31/20 18:29 37.3 C 70 20 182/104 H 96 Laboratory Results Lab Results 07/31/20 07/31/20 07/31/20 Range/Units 20:00 20:00 20:00 WBC 6.34 (4.8-10.8) K/uL RBC 4.07 L (4.2-5.4) M/uL Hgb 13.3 (12.0-16.0) g/dL Hct 37.3 (37-47) % MCV 91.6 (80-100) fL MCH 32.7 (25-34) pg MCHC 35.7 (32-36) g/dL RDW Std Deviation 44.3 (36.4-46.3) fL RDW Coeff of Tawanda 13.1 (11.5-14.5) % Plt Count 343 (130-400) K/uL MPV 10.1 (7.4-10.4) fL Immature Gran % (Auto) 0.2 % Neut % (Auto) 71.4 % Lymph % (Auto) 16.9 % Pinal % (Auto) 6.5 % Eos % (Auto) 4.4 % Baso % (Auto) 0.6 % Neut # (Auto) 4.53 (1.4-6.5) K/uL Lymph # (Auto) 1.07 L (1.2-3.4) K/uL Pinal # (Auto) 0.41 (0.11-0.59) K/uL Eos # (Auto) 0.28 (0-0.5) K/uL Baso # (Auto) 0.04 (0-0.2) K/uL Immature Gran # (Auto) 0.01 (0.00-0.02) K/uL PT (9.0-12.0) Seconds INR (0.9-1.1) APTT (21.0-31.0) Seconds PTT Ratio Sodium 141 (136-145) mmol/L Potassium 3.7 (3.5-5.1) mmol/L Chloride 109 H (98-107) mmol/L Carbon Dioxide 24 (21-32) mmol/L Anion Gap 8.0 (3-11) BUN 12 (7-18) mg/dl Creatinine 0.79 (0.6-1.2) mg/dl Est Cr Clr Drug Dosing 112.8 ml/min Est GFR ( Amer) 112.4 Est GFR (Non-Af Amer) 97.0 BUN/Creatinine Ratio 15.4 (10-20) Glucose 84 (70-99) mg/dl Calcium 9.2 (8.5-10.1) mg/dl Magnesium 2.3 (1.8-2.4) mg/dl Total Bilirubin 0.3 (0.2-1) mg/dl AST 54 H (15-37) U/L ALT 77 (12-78) U/L Alkaline Phosphatase 120 H (45-117) U/L Troponin I 0.190 H* (0-0.045) ng/ml Total Protein 7.4 (6.4-8.2) gm/dl Albumin 3.3 L (3.4-5.0) gm/dl Globulin 4.1 H (2.5-4.0) gm/dl Albumin/Globulin Ratio 0.8 L (0.9-2) TSH 2.310 (0.300-4.500) uIu/ml Urine Color Yellow Urine Appearance Clear (Clear) Urine pH 7.0 (4.5-7.5) Ur Specific Font[place] 1.004 (1.000-1.030) Urine Protein Negative (Negative) Urine Glucose (UA) Negative (Negative) Urine Ketones Negative (Negative) Urine Blood 2+ H (Negative) Urine Nitrite Negative (Negative) Urine Bilirubin Negative (Negative) Urine Urobilinogen Negative (Negative) Ur Leukocyte Esterase 2+ H (Negative) Urine WBC (Auto) 5-10 H (0-5) /hpf Urine RBC (Auto) 0-4 (0-4) /hpf U Hyaline Cast (Auto) 0 (0-5) /lpf U Epithel Cells (Auto) 20-30 H (0-5) /lpf Urine Bacteria (Auto) Negative (Negative) 07/31/20 07/31/20 Range/Units 20:00 21:59 WBC (4.8-10.8) K/uL RBC (4.2-5.4) M/uL Hgb (12.0-16.0) g/dL Hct (37-47) % MCV (80-100) fL MCH (25-34) pg MCHC (32-36) g/dL RDW Std Deviation (36.4-46.3) fL RDW Coeff of Tawanda (11.5-14.5) % Plt Count (130-400) K/uL MPV (7.4-10.4) fL Immature Gran % (Auto) % Neut % (Auto) % Lymph % (Auto) % Pinal % (Auto) % Eos % (Auto) % Baso % (Auto) % Neut # (Auto) (1.4-6.5) K/uL Lymph # (Auto) (1.2-3.4) K/uL Pinal # (Auto) (0.11-0.59) K/uL Eos # (Auto) (0-0.5) K/uL Baso # (Auto) (0-0.2) K/uL Immature Gran # (Auto) (0.00-0.02) K/uL PT 10.6 (9.0-12.0) Seconds INR 1.0 (0.9-1.1) APTT 27.1 (21.0-31.0) Seconds PTT Ratio 1.0 Sodium (136-145) mmol/L Potassium (3.5-5.1) mmol/L Chloride (98-107) mmol/L Carbon Dioxide (21-32) mmol/L Anion Gap (3-11) BUN (7-18) mg/dl Creatinine (0.6-1.2) mg/dl Est Cr Clr Drug Dosing ml/min Est GFR ( Amer) Est GFR (Non-Af Amer) BUN/Creatinine Ratio (10-20) Glucose (70-99) mg/dl Calcium (8.5-10.1) mg/dl Magnesium (1.8-2.4) mg/dl Total Bilirubin (0.2-1) mg/dl AST (15-37) U/L ALT (12-78) U/L Alkaline Phosphatase (45-117) U/L Troponin I 0.620 H* (0-0.045) ng/ml Total Protein (6.4-8.2) gm/dl Albumin (3.4-5.0) gm/dl Globulin (2.5-4.0) gm/dl Albumin/Globulin Ratio (0.9-2) TSH (0.300-4.500) uIu/ml Urine Color Urine Appearance (Clear) Urine pH (4.5-7.5) Ur Specific [place] (1.000-1.030) Urine Protein (Negative) Urine Glucose (UA) (Negative) Urine Ketones (Negative) Urine Blood (Negative) Urine Nitrite (Negative) Urine Bilirubin (Negative) Urine Urobilinogen (Negative) Ur Leukocyte Esterase (Negative) Urine WBC (Auto) (0-5) /hpf Urine RBC (Auto) (0-4) /hpf U Hyaline Cast (Auto) (0-5) /lpf U Epithel Cells (Auto) (0-5) /lpf Urine Bacteria (Auto) (Negative) Diagnostic Findings XR chest 1V portable CLINICAL HISTORY: Chest pain, hypertension, recent vaginal delivery. COMPARISON STUDY: No previous studies for comparison. FINDINGS: The cardiac and mediastinal contours are normal. There is no evidence of focal pulmonary consolidation. There is no evidence of failure. No pleural effusions are visualized.[ IMPRESSION: No active disease in the chest. ACT 112: Negative or not required by law. Electronically signed by: Venkat Rodarte M.D. 07/31/2020 8:08 PM Dictated: 07/31/202007 Transcribed: 07/31/202007 CTA-Chest - Per STAT rad: the pulmonary arterial tree is well opacified with contrast. No pulmonary emboli are identified. The aorta is nondilated. There is no aneurysm of dissection. No mediastinal or axillary lymphadenopathy or masses seen. The heart is not enlarged. No pericardial effusion. The lungs are well inflated and clear. No infiltrate or consolidation is seen. No pneumothorax or pleural effusion. Skeletal structures are within normal limits for age. CT Head: Per STAT rad: The paranasal sinuses and mastoid air cells are normally aerated. There is no skull fracture or scalp hematoma. There is a normal gyral pattern of the brain. There is no mass lesion or midline shift. The randhawa-white matter differentiation is maintained. The ventricles and CSF spaces are normal. There is no evidence of acute large vessel infarct or intracranial hemorrhage ECG Additional Comments: EKG with NSR at 66, normal axis, no acute ischemic changes Repeat EKG unchanged PG Care Time/CCT Total # of Minutes Spent Total Time Spent with Patient: Total time spent is greater than 50% in coordination of care (as documented) at patient's floor/unit and/or counseling patient: Coding Level of Care Code 46856 Inpt Consult Level 3 Diagnoses Elevated troponin R79.89 Severe pre-eclampsia, complicating the puerperium O14.15 Depression F32.9 Depression Type: unspecified (1) Depression Depression Type: unspecified Qualified Code(s): F32.9 - Major depressive disorder, single episode, unspecified
[2020-08-01] MEDS ORDERED: LABETALOL HCL IV 5 MG/ML 20ML IV STA (02:11)
[2020-08-01] MEDS ORDERED: LACTATED RINGER'S 1,000 ML IV PRN (02:11)
[2020-08-01] MEDS: MAGNESIUM SULFATE / WTR 40 GM/1,000 ML BAG IV SCH ×2 (02:52→21:05)
--- NOTE | 2020-08-01 06:55 | CT Scan Report ---
CT head/brain wo con CLINICAL HISTORY: 35 years-old Female with headache, htn. Acute headache with hypertension TECHNIQUE: Multiple axial CT images of the head were obtained without contrast. A dose lowering tech nique was utilized adhering to the principles of ALARA. CT DOSE: 1210.01 mGy.cm COMPARISON: None. FINDINGS: No acute intracranial hemorrhage, midline shift, intracranial mass, hydrocephalus, territorial ischem ia or abnormal extra-axial collection. The calvarium is intact. The paranasal sinuses, mastoid air cells, and middle ear cavities are clear . IMPRESSION: No acute intracranial abnormality. ACT 112: Negative or not required by law. The above report was generated using voice recognition software. It may contain grammatical, syntax o r spelling errors. Electronically signed by: Jose Drew M.D. 08/01/2020 6:53 AM
[2020-08-01 07:41] LABS: Hematocrit (blood only) 40.1 % (37-47); Hemoglobin 13.9 g/dL (12.0-16.0); Mean Corpuscular Hemoglobin 31.6 pg (25-34); Mean Corpuscular Hgb Conc 34.7 g/dL (32-36); Mean Corpuscular Volume 91.1 fL (80-100); Platelet Count 359 K/uL (130-400); White Blood Count 6.52 K/uL (4.8-10.8)
--- NOTE | 2020-08-01 07:48 | Obstetrical Progress Note ---
Date of Service August 01, 2020 Assessment & Plan (1) Severe pre-eclampsia, complicating the puerperium: Continue magnesium for 24 hours total therapy. Patient's BP has defervesced to almost all normal values since around 2am. Continue home PO labetalol dose and utilize IV prn if BP increases to severe range. Continue shaver, I/O. Recheck labs this morning, drawn and pending.. (2) Elevated troponin: Appreciate medicine / cardiology input. Troponin bumped to 0.19 then 0.62 and then 0.74. Literature review last night suggests this may be within the range seen in a setting, and severe preeclampsia may especially be associated with troponin bumps...her most rapid rate of troponin increase was during the time she had severe BP, too, and may represent heart strain. It remains important to rule out other etiologies. All of this was explained to the patient this morning and seemed to help ease her anxiety somewhat. She has had stable EKG's and had an echo completed this morning and results are pending. Subjective Resting in semifowler's. No current chest pressure, that resolved. Continues mild STILL but "it doesn't feel like the one I had last night - I think this is because I keep crying about missing my baby and I just need some sleep." No SOB, no RUQ pain, no vision changes. Lochia small and c/w what she'd been having at home. Tele monitor in place; reviewed/discussed with monitoring staff on 2E, no events o/n. Magnesium infusing at 50cc/hr, no other IVF seen to be running currently, patient taking fluids PO and eager for breakfast. Breastpump at bedside, patient is using but "it's not going too well yet." She had been directly BF'ing at home and is sad the baby is getting formula at home right now. Counseled and reassured. Physical Exam Constitutional WD/WN, vitals as above Eyes PERRL, conjunctivae normal, anicteric sclerae Neck normal visual inspection Respiratory normal respiratory effort and able to speak in complete sentences; no respiratory distress and no labored breathing Cardiovascular Rate/Rhythm: regular rate and regular rhythm Extremities: no edema Chest (Breasts) Chest: normal inspection of chest Gastrointestinal (Abdomen) Inspection/Auscultation: abdomen normal to inspection Soft, postgravid Psychiatric A+Ox3, euthymic affect Genitourinary OB Exam Abdomen: + fundal height Fundus: + firm and + relation to umbilicus (fundus just below umbilicus); not tender [facility]) Vital Signs (Past 12 Hours) Vital Signs Temp Pulse Pulse Resp BP BP Pulse Ox 08/01/20 07:08 97.7 F 92 H 17 144/98 H 96 08/01/20 06:13 90 16 119/87 08/01/20 05:45 84 14 114/77 08/01/20 05:30 88 16 122/90 98 08/01/20 05:15 72 14 124/84 08/01/20 05:00 73 14 126/83 08/01/20 04:45 98.1 F 74 16 127/94 98 08/01/20 04:00 80 14 132/85 08/01/20 03:00 82 16 132/85 08/01/20 02:45 80 16 122/85 98 08/01/20 02:15 74 16 155/98 H 98 08/01/20 02:00 98.1 F 84 18 145/98 H 98 08/01/20 01:30 97 H 21 120/89 98 08/01/20 01:00 87 20 135/99 98 08/01/20 00:30 81 19 155/114 H 08/01/20 00:17 83 19 171/116 H 07/31/20 23:30 65 15 134/97 97 07/31/20 23:00 70 17 149/89 H 96 07/31/20 22:30 67 19 142/95 H 97 07/31/20 22:00 73 18 173/111 H 97 07/31/20 21:45 62 16 183/109 H 96 07/31/20 21:43 61 23 183/109 H 97 07/31/20 21:00 77 20 180/107 H 98 07/31/20 20:30 61 18 157/105 H 96 07/31/20 19:58 62 20 96
[2020-08-01] MEDS: SERTRALINE HCL 100 MG TABLET PO SCH (08:19)
[2020-08-01] MEDS: LABETALOL HCL 100 MG TAB PO SCH ×2 (08:19→21:05)
[2020-08-01 08:21] LABS: Albumin Globulin Ratio 0.8 (0.9-2); Albumin Level 3.4 gm/dl (3.4-5.0); BUN Creatinine Ratio 11.1 (10-20); Bilirubin,Total 0.4 mg/dl (0.2-1); Calcium 7.9 mg/dl (8.5-10.1); Creatinine Clr Calc Pharmacy 109.5 ml/min; Est GFR (African American) 110.7; Est GFR (Non-African American) 95.5; Globulin 4.2 gm/dl (2.5-4.0); Potassium 3.7 mmol/L (3.5-5.1); Total Protein 7.6 gm/dl (6.4-8.2); Uric Acid 7.9 mg/dl (2.6-7.2)
--- NOTE | 2020-08-01 08:24 | CT Scan Report ---
CT ANGIOGRAM OF THE CHEST CLINICAL HISTORY: Elevated troponin. Shortness of breath. Chest pressure. Recent vaginal delivery. COMPARISON STUDY: Chest x-ray dated 07/31/2020 TECHNIQUE: Following the IV administration of 120 mL of Optiray-320, CT angiogram of the thorax was p erformed from the thoracic inlet to the lung bases utilizing the pulmonary embolus protocol. Images a re reviewed in the axial, sagittal, and coronal planes. IV contrast was administered without complica tion. MIP imaging was performed. A dose lowering technique was utilized adhering to the principles o f ALARA. CT DOSE: FINDINGS: No pathologically enlarged axillary mediastinal or hilar lymph nodes were visualized. There was no evidence of thoracic aortic dilatation. There were no pulmonary artery filling defects to indicate acute pulmonary embolism. No pleural effusions are visualized. There was no evidence of focal pulmonary consolidation. IMPRESSION: 1. No acute intrathoracic findings 2. No evidence of acute pulmonary embolism 3. No evidence of focal pulmonary consolidation ACT 112: Negative or not required by law. Electronically signed by: Venkat Rodarte M.D. 08/01/2020 8:22 AM
--- NOTE | 2020-08-01 12:00 | XCELERA ---
[id number]
--- NOTE | 2020-08-01 12:29 | Cardiology Consultation ---
Date of Consultation August 01, 2020 Assessment & Plan (1) Chest discomfort: Her chest discomfort is worrisome in view of the abnormal cardiac enzymes, it would be a little bit unusual but is suggestive of coronary artery disease. I think we need to perform some type of evaluation to exclude it, stress testing or catheterization. I discussed it with Dr. Ray as well as the patient, either way might be acceptable however I am concerned about the lack of sensitivity for stress testing and would lean toward catheterization. The patient is agreeable. I will tentatively set that up for tomorrow. (2) Elevated troponin: She does have an abnormal troponin which is an atypical ascending pattern but then on a repeat measurement this afternoon it had dropped down somewhat. This is very suggestive of an ischemic event although that would be unusual at her age. It would not be typical of myocarditis unless the last result is an error. (3) Hypertension: She does have a history of hypertension and her blood pressure was elevated on arrival, but overall it has been fairly well controlled here. History of Present Illness Reason for Consultation: Chest discomfort, elevated troponin Attending Physician: Shandra Lopez MD History of Present Illness This is a 35-year-old woman who delivered a healthy baby on July 25, 2020. She does have a history of hypertension and is maintained on labetalol 100 mg twice a day. She developed some chest tightness and noted that her blood pressure was 170 systolic, she called her sound mixer who recommended coming into the emergency room. She continued to have chest discomfort in the emergency room, however it subsequently resolved this morning. She describes a chest heaviness which lasted 10 to 12 hours, was not terribly positional although may have been a little bit worse with sitting up, was not exertional. She feels tired afterwards but had no palpitations, no lightheadedness or dizziness. She has never had these symptoms before. Evaluation in the emergency room included an electrocardiogram showing sinus rhythm at 72 bpm and is entirely normal. Cardiac enzymes were done in the emergency room and are increased initially in an ascending pattern (0.190 on arrival, 0.6 to 02 hours later, 0.741 4-1/2 hours after arrival) now a fourth troponin done 16 hours after her presentation is back down to 0.289. Liver function tests are also mildly elevated. An echocardiogram done this morning shows normal left ventricular size and function with no wall motion abnormalities and no pericardial effusion. Allergies Allergy/AdvReac Type Severity Reaction Status Date / Time No Known Allergies Allergy Verified 07/31/20 23:06 Home Medications Home Medications Medication Instructions Recorded Confirmed Type labetalol 100 mg tablet 100 mg PO BID 12/28/19 07/31/20 History prenat.vits,eugene,vjq-ojrn-bizrw 1 tab PO DAILY 12/28/19 07/31/20 History sertraline 100 mg tablet 100 mg PO DAILY 12/28/19 07/31/20 History Patient History Medical History Anxiety and depression History of chicken pox Hypertension Surgical History S/P dilatation and curettage Family History Father Hypertension Social History Smoking Status: Former smoker Tobacco Type: Cigarettes Hx Alcohol Use: Yes Alcohol type: hard liquor Hx Substance Use: No Preferred Language: [place] Communication Ability: Effective Beliefs That Will Affect Care: None marital status: marital status details: Oliverio Sandoval ([id number]) [phone] Current Living Situation: Spouse Current Living Situation Comment: lives with and children current occupational status: employed 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 HEENT: Unremarkable Neck: No jugular venous distention, carotid pulses are normal and equal bilaterally without bruits. Pulmonary: Clear to auscultation bilaterally. Cardiac: Regular rhythm with no murmur, gallop or rub. Abdomen: Soft, nontender with normal bowel sounds. Extremities: No edema. Distal pulses intact. Neurologic: No focal findings. Gait is steady. Skin: No rash, ecchymoses or petechiae. Results & Data ([facility]) Vital Signs (Past 12 Hours) Vital Signs Temp Pulse Pulse Resp BP BP Pulse Ox 08/01/20 11:05 37.0 C 85 18 120/94 97 08/01/20 07:08 36.5 C 92 H 17 144/98 H 96 08/01/20 06:13 90 16 119/87 08/01/20 05:45 84 14 114/77 08/01/20 05:30 88 16 122/90 98 08/01/20 05:15 72 14 124/84 08/01/20 05:00 73 14 126/83 08/01/20 04:45 36.7 C 74 16 127/94 98 08/01/20 04:00 80 14 132/85 08/01/20 03:00 82 16 132/85 08/01/20 02:45 80 16 122/85 98 08/01/20 02:15 74 16 155/98 H 98 08/01/20 02:00 36.7 C 84 18 145/98 H 98 08/01/20 01:30 97 H 21 120/89 98 08/01/20 01:00 87 20 135/99 98 08/01/20 00:30 81 19 155/114 H Laboratory Results Cardiac Enzymes 07/31/20 07/31/20 08/01/20 Range/Units 20:00 21:59 00:29 AST 54 H (15-37) U/L Troponin I 0.190 H* 0.620 H* 0.741 H* (0-0.045) ng/ml 08/01/20 Range/Units 07:10 AST 66 H (15-37) U/L Troponin I (0-0.045) ng/ml Coagulation 07/31/20 Range/Units 20:00 PT 10.6 (9.0-12.0) Seconds APTT 27.1 (21.0-31.0) Seconds CBC 07/31/20 08/01/20 Range/Units 20:00 07:10 WBC 6.34 6.52 (4.8-10.8) K/uL RBC 4.07 L 4.40 (4.2-5.4) M/uL Hgb 13.3 13.9 (12.0-16.0) g/dL Hct 37.3 40.1 (37-47) % Plt Count 343 359 (130-400) K/uL Neut # (Auto) 4.53 (1.4-6.5) K/uL Lymph # (Auto) 1.07 L (1.2-3.4) K/uL Benson # (Auto) 0.41 (0.11-0.59) K/uL Eos # (Auto) 0.28 (0-0.5) K/uL Baso # (Auto) 0.04 (0-0.2) K/uL Comprehensive Metabolic Panel 07/31/20 08/01/20 Range/Units 20:00 07:10 Sodium 141 138 (136-145) mmol/L Potassium 3.7 3.7 (3.5-5.1) mmol/L Chloride 109 H 104 (98-107) mmol/L Carbon Dioxide 24 22 (21-32) mmol/L BUN 12 9 (7-18) mg/dl Creatinine 0.79 0.80 (0.6-1.2) mg/dl Glucose 84 103 H (70-99) mg/dl Calcium 9.2 7.9 L (8.5-10.1) mg/dl AST 54 H 66 H (15-37) U/L ALT 77 84 H (12-78) U/L Alkaline Phosphatase 120 H 120 H (45-117) U/L Total Protein 7.4 7.6 (6.4-8.2) gm/dl Albumin 3.3 L 3.4 (3.4-5.0) gm/dl Intake and Output 07/31/20 08/01/20 08/01/20 22:59 06:59 14:59 Intake Total 100 / 600 500 / 600 453.333 / 453.333 Output Total 760 / 770 2610 / 2610 Balance 100 / -170 -260 / -170 -2156.667 / -2156.667 Intake: IV 100 / 300 200 / 300 453.333 / 453.333 Mag Sulfate Bolus From Bag 4 gm 100 / 100 @ Per Protocol IV .Q0M ONE Rx# :[id number] MAGNESIUM SULFATE / WTR 40 gm 200 / 200 453.333 / 453.333 In 1,000 ml @ 25 mls/hr IV . Q24H [facility] Rx#:[id number] Oral 300 / 300 Output: Urine Amount (Catheter) 760 / 770 2610 / 2610 [place]/Indwelling 760 / 770 2610 / 2610 Other: Weight 94.2 kg 91.2 kg Diagnostic Findings Telemetry: Sinus rhythm, rate 80 to 100 bpm, no significant arrhythmia. Repeat ECG: Sinus rhythm, no acute changes although the QT interval is a little bit longer than the first. PG Care Time/CCT Total # of Minutes Spent Total Time Spent with Patient: Total time spent is greater than 50% in coordination of care (as documented) at patient's floor/unit and/or counseling patient: Coding Level of Care Code 03223 Inpt Consult Level 5 Diagnoses Chest discomfort R07.89 Elevated troponin R79.89 Hypertension I10
[2020-08-01] MEDS ORDERED: D5W AND NSS 1,000 ML IV SCH (15:30)
[2020-08-01 19:03] LABS: Hematocrit (blood only) 41.4 % (37-47); Hemoglobin 14.5 g/dL (12.0-16.0); Mean Corpuscular Hemoglobin 32.2 pg (25-34); Mean Corpuscular Volume 91.8 fL (80-100); Mean Platelet Volume 10.1 fL (7.4-10.4); Platelet Count 388 K/uL (130-400); RDW Coefficient of Variation 13.1 % (11.5-14.5); RDW Standard Deviation 43.9 fL (36.4-46.3); Red Blood Count 4.51 M/uL (4.2-5.4); White Blood Count 6.44 K/uL (4.8-10.8)
[2020-08-01 19:26] LABS: Creatinine Clr Calc Pharmacy 90.3 ml/min; Est GFR (African American) 87.7; Est GFR (Non-African American) 75.7; Magnesium Therapeutic L&D Only 5.9 mg/dL (4.0-8.0)
[2020-08-02] MEDS ORDERED: HEPARIN (PORCINE) 1000 UNIT/ML 10 ML (CATH LAB USE ONLY) ONE (07:03)
[2020-08-02] MEDS ORDERED: MIDAZOLAM HCL 1 MG/ML 2ML VIAL ONE (07:03)
[2020-08-02] MEDS ORDERED: NiCARDipine HCL INJ 2.5 MG/ML 10 ML AMP ONE (07:03)
[2020-08-02] MEDS ORDERED: fentaNYL citrate 100 MCG/2 ML VIAL ONE (07:03)
[2020-08-02] MEDS ORDERED: NITROGLYCERIN/D5W 100MCG/ML 20ML SYR ONE (07:04)
--- NOTE | 2020-08-02 07:16 | Pre Anesthesia Assessment ---
Date of Service August 02, 2020 Pre Sedation Assessment Vital Signs Temp Pulse Pulse Pulse Resp BP Pulse Ox 08/02/20 03:10 98.8 F 79 18 121/84 97 08/02/20 00:47 77 08/01/20 23:36 99.3 F 80 18 125/86 96 08/01/20 19:41 98.4 F 83 18 149/97 H 95 08/01/20 15:47 98.1 F 90 18 141/107 H 96 08/01/20 11:05 98.6 F 85 18 120/94 97 Cardiovascular RRR, no murmur, no edema Respiratory normal respiratory effort, lungs clear to auscultation Pre-Sedation Airway Assessment Smoking Status: Former smoker Hx Sleep Apnea: No Hx Difficult Intubation: No Short, Thick Neck: No Thyromental Distance: > or= 3.5 Finger Breadths Oral Cavity: + WNL Mallampati Class: III ASA: ASA3 Procedure Planning Contraindications for Sedation: none Current Medications Reviewed: Yes Notes The planned sedation has been discussed with the patient. Informed Consent was obtained. I have identified the patient, determined the appropriateness of sedation and have assessed the patient immediately prior to the procedure. All medicine(s) and interventions are by my order.
--- NOTE | 2020-08-02 08:13 | Post Anesthesia Assessment ---
Date of Service August 02, 2020 Post Sedation Assessment Vital Signs Temp Pulse Pulse Pulse Resp BP Pulse Ox 08/02/20 03:10 98.8 F 79 18 121/84 97 08/02/20 00:47 77 08/01/20 23:36 99.3 F 80 18 125/86 96 08/01/20 19:41 98.4 F 83 18 149/97 H 95 08/01/20 15:47 98.1 F 90 18 141/107 H 96 08/01/20 11:05 98.6 F 85 18 120/94 97 Recovery Score Activity: Moves 4 extremities Respiration: Deep Breath/Cough Circulation: +/-20% PreAnes Value Consciousness: Fully Awake Oxygen Saturation: O2 needed for >90% Discharge Sedation Level of Care: Fast Track Phase II Post Sedation Plan On clinical assessment, the patient appears to have tolerated the sedation without complications. Patient is recovering as anticipated. Patient will continue to be monitored by nursing and may be discharged when sedation discharge criteria are met per below protocol. Upon Completions of procedure up to 15 minutes continue every 5 minute vital signs and the P.A.R. score; then discharge to a Phase I or Fast Track to Phase II per the following guidelines: * Discharge Patient to appropriate Phase II area if PAR is 8 or greater or return to pre- procedure baseline. The post - procedure orders will be as directed. * If PAR score is less than 8 or not return to pre-procedure baseline then patient will follow Phase I monitoring till PAR is reached for Phase II. The Phase I may be done in procedure room or may call to secure a Phase I area. * If naloxone or flumazenil are used for reversal, hold in Phase I for continued monitoring from when last reversal dose was given for a minimum of 60 minutes or longer pending the nurse and/or physician discretion of patient condition before discharge to Phase II. Please call the Sedation Physician to re-evaluate and complete post-note for discharge to Phase II area. Do NOT discharge from procedure sedation or Phase 1 until post- sedation evaluation note is complete by procedure /sedation MD Sedation Discharge Instructions to be given to the patient at discharge to home.
--- NOTE | 2020-08-02 08:24 | Cardiac Catheterization ---
[facility] Data: [employer] Helper Cardiac Status Clinical evaluation leading to the procedure CAD Presenation: Sx unlikely to be ischemic (chest pain) Anginal Classification: CCS II Heart Failure: No Cardiogenic Shock within 24 Hours: No Cardiac Arrest within 24 Hours: No Imaging Studies Past 6 Months: Yes Stress Studies Past 6 Months: No Diagnostic Physicians Name: Ariel Ray MD Status: Elective Closure Device Percutaneous Entry Location: Radial Closure Device: Angio-Seal Recommendations: Medical Therapy and/or Counseling Intraprocedure Events Significant Disection: No Perforation: No Cardiac Cath Procedure Full Procedure Date August 02, 2020 Pre-Procedure Diagnosis Pre-Procedure Diagnosis: Cardiothoracic Symptom (chest pain, elevated troponin) AUC Score AUC Score: 7 Post-Procedure Diagnosis Post-Procedure Diagnosis: Normal Coronary Arteries and Normal Intracardiac Pressures Procedure(s) Performed Procedure(s) Performed: Coronary Angiography and Left Heart Cath Collector Of [employer]im[employer] Ariel Ray MD Forestry Aid(s) Jayant Estimated Blood Loss Estimated Blood Loss: 5 Medication(s) Medication(s): Fentanyl, Heparin, Lidocaine 1%, Nicardipine, Nitroglycerin and Versed Summary of Findings Indication: Chest pain, mildly elevated troponin Access: 6Fr slender right radial artery Catheters: [place] Findings: LM - Angiographically normal LAD - Angiographically normal Circumflex - Angiographically normal RCA - Angiographically normal Arterial Closure: TR Band Summary: 1. Angiographically normal coronary arteries 2. Normal intracardiac filling pressure Recommendations: No high risk coronary artery disease. Continue ASCVD risk factor modification. Hemodynamics Rest Ao:: 127/92/120 Final Ao: 125/81/101 LV: 125/3 Recommendations Recommendations: Medical Therapy and/or Counseling Specimens Specimens: None Radiation Exposure (mGy) 765 Contrast (mls) 40 Fluids (cc crystalloids) Fluids (cc crystalloids): none Drains Drains: none Anesthesia moderate Procedural Complication(s) None Disposition PCU I attest to the content of the Intraoperative Record and any orders documented therein. Any exceptions are noted below. [facility] Card Cath Procedure Codes Cardiac Catheterization Procedure 1: Cardiovascular Cath Procedures: 67303 Coronaries and LHC (+/-LV) Moderate Sedation Procedure 1: Sedation/Anesthesia: 52014 Mod Sedation by the same physician;Init15 Min Child Age 5 & Up PG Care Time/CCT Total # of Minutes Spent Total Time Spent with Patient: Total time spent is greater than 50% in coordination of care (as documented) at patient's floor/unit and/or counseling patient:
[2020-08-02] MEDS: LABETALOL HCL 100 MG TAB PO SCH (09:13)
[2020-08-02] MEDS: SERTRALINE HCL 100 MG TABLET PO SCH (09:13)
--- NOTE | 2020-08-02 09:41 | Obstetrical Progress Note ---
Date of Service August 02, 2020 Assessment & Plan (1) Severe pre-eclampsia, complicating the puerperium: Enma is a 35-year-old approximately 1 week from vaginal delivery presented for chronic hypertension superimposed with pre-eclampsia with severe features. Patient has completed 24 hours of Mag is doing well at this time. Blood pressures have normotensive to occasional mild range since onset magnesium. The labs have stabilized or improved. Patient had a cardiac catheterization today which was normal and was cleared by Cardiology from discharge from their standpoint. Patient doing well today and is stable for discharge. Ongoing preeclampsia precautions discussed. (2) Chronic hypertension during , antepartum: Admission and Anticipated Discharge Date Admission Date: July 31, 2020 Subjective Patient reports that she is doing well today. Denies any preeclampsia symptoms. Patient had a cardiac catheterization today which was unremarkable. Denies any concerns. Physical Exam Constitutional: WD/WN, vitals as above Eyes: PERRL, conjunctivae normal, anicteric sclerae Respiratory: normal respiratory effort, lungs clear to auscultation Cardiovascular: RRR, no murmur, no edema Gastrointestinal (Abdomen): Percussion/Palpation: + abdomen rigid and abdomen soft; abdomen nontender and no guarding Neurologic: patellar DTR's 2+ bilat, sensation intact Results & Data ([facility]) Vital Signs (Past 12 Hours) Vital Signs Temp Pulse Pulse Pulse Resp BP Pulse Ox 08/02/20 09:15 63 16 144/89 H 97 08/02/20 09:00 37.0 C 62 16 146/92 H 97 08/02/20 08:30 70 14 123/91 93 08/02/20 08:15 70 14 131/87 93 08/02/20 03:10 37.1 C 79 18 121/84 97 08/02/20 00:47 77 08/01/20 23:36 37.4 C 80 18 125/86 96 PG Care Time/CCT Total # of Minutes Spent Total Time Spent with Patient: Total time spent is greater than 50% in coordination of care (as documented) at patient's floor/unit and/or counseling patient: Coding Level of Care Code None Diagnoses Severe pre-eclampsia, complicating the puerperium O14.15 Chronic hypertension during , antepartum O10.919
--- NOTE | 2020-08-02 15:55 | History & Physical Bridge Note ---
Date of Service August 02, 2020 History & Physical Bridge Note Pt discharged prior to being seen by myself. Chart reviewed.
--- NOTE | 2020-08-03 11:32 | Electrocardiogram Report ---
Test Reason : Blood Pressure : / mmHG Vent. Rate : 066 BPM Atrial Rate : 066 BPM P-R Int : 152 ms QRS Dur : 090 ms QT Int : 398 ms P-R-T Axes : 039 034 051 degrees QTc Int : 417 ms Normal sinus rhythm Normal ECG No previous ECGs available Confirmed by Lamine Lao ([id number]) on 08/03/2020 11:32:19 AM Referred By: Shandra Lopez Confirmed By:Lamine Lao
--- NOTE | 2020-08-03 11:57 | Electrocardiogram Report ---
Test Reason : Blood Pressure : / mmHG Vent. Rate : 077 BPM Atrial Rate : 077 BPM P-R Int : 150 ms QRS Dur : 094 ms QT Int : 400 ms P-R-T Axes : 031 012 033 degrees QTc Int : 452 ms Normal sinus rhythm Normal ECG When compared with ECG of 31-JUL-2020 19:53, (unconfirmed) No significant change was found Confirmed by Lamine Loa ([id number]) on 08/03/2020 11:57:15 AM Referred By: Shandra Lopez Confirmed By:Lamine Lao
--- NOTE | 2020-08-03 12:16 | Electrocardiogram Report ---
Test Reason : Blood Pressure : / mmHG Vent. Rate : 077 BPM Atrial Rate : 077 BPM P-R Int : 158 ms QRS Dur : 094 ms QT Int : 440 ms P-R-T Axes : 044 046 056 degrees QTc Int : 498 ms Normal sinus rhythm Prolonged QT Abnormal ECG When compared with ECG of 01-AUG-2020 00:35, (unconfirmed) QT has lengthened Confirmed by Lamine Lao ([id number]) on 08/03/2020 12:16:21 PM Referred By: Shandra Lopez Confirmed By:Lamine Lao
--- NOTE | 2020-08-03 12:43 | Electrocardiogram Report ---
Test Reason : Blood Pressure : / mmHG Vent. Rate : 058 BPM Atrial Rate : 058 BPM P-R Int : 166 ms QRS Dur : 090 ms QT Int : 484 ms P-R-T Axes : 042 047 054 degrees QTc Int : 475 ms Sinus bradycardia Otherwise normal ECG When compared with ECG of 01-AUG-2020 14:46, (unconfirmed) No significant change was found Confirmed by Lamine Lao ([id number]) on 08/03/2020 12:43:32 PM Referred By: Shandra Lopez Confirmed By:Lamine Lao
--- NOTE | 2020-08-11 03:24 | Discharge Summary (DS) ---
HOSPITAL COURSE: Enma is a 35-year-old admitted approximately 1 week status post vaginal delivery. The patient was seen in the Emergency Department for severe range blood pressures and was ultimately diagnosed with preeclampsia with severe features. During Emergency Department evaluation, the patient was noted to have a very mild bump in troponins. The patient was admitted to the OB service for preeclampsia. She was started on magnesium per protocol and blood pressures were controlled with IV labetalol. The cardiology service was consulted by the Emergency Department secondary to the slight bump in troponins. After completion of her mag course, the patient did well with improvement in blood pressures and no additional preeclampsia symptoms. The patient underwent a cardiac catheterization on day of discharge, which was noted to be unremarkable. At the time of discharge, the patient was doing well with no residual symptoms of preeclampsia and blood pressures within normal range. The patient was discharged home in stable condition with both written and verbal discharge instructions provided.
== END 2020-08-02 12:40 | disposition home or self-care (01) | DRG 776 ==
LOC: ED 18:10 → 2S 22:36